=== PATIENT | female | born 1970 | race Caucasian/White ===

== ENCOUNTER 2018-09-26 09:52 | Outpatient (CLI) ==
--- NOTE | 2018-09-26 15:17 | MRI ---
EXAM: MRI cervical spine without IV contrast. DATE: 26 September 2018. HISTORY: Neck pain. TECHNIQUE: Sagittal and axial T1W and T2W sequences of the cervical spine along with sagittal IR and coronal T2W sequences were obtained using 1.2 Reema magnet. No IV contrast. COMPARISON: C-spine MRI 02/15/2017. FINDINGS: There is no cervical scoliosis. A 1 mm anterior subluxation of C2 relative to C3 is noted . No other subluxation, acute fracture, osseous malignancy, or jumped facet is evident. Cervical ve rtebra are normal in height. Minor anterior osteophytes are observed at C3-4 and C4-5. Mild/moderat e disc space narrowing is present at C4-5 and C5-6. Posterior disc/osteophyte complexes cause anteri or cord flattening at several levels. No syrinx, cord edema, myelomalacia, or neoplasm is evident. Visible brainstem and cerebellum are unremarkable. No thyroid, submandibular, or parotid gland neopl asm is evident. Trachea, larynx, and epiglottis are normal. No thyroid, submandibular, or parotid g land neoplasm is apparent. No suspicious neck mass, cervical lymphadenopathy, apical lung mass, pneu monia, or pleural effusion is demonstrated. Segmental analysis: C2-3: Normal. C3-4: Small posterior disc/osteophyte complex (1.8 mm AP) does not contact the cord. Canal is 10.7 mm AP. Mild right and minor left foraminal stenoses are due to uncinate hypertrophy. C4-5: Broad posterior disc/osteophyte complex (1.8 mm AP) approaches the anterior margin the cord. Canal is 7.8 mm AP. Minor bilateral foraminal narrowing is due to uncinate hypertrophy. C5-6: Broad posterior disc/osteophyte complex (3.5 mm AP) flattens the cord anteriorly. Canal is 7. 4 mm AP. Each foramen is patent. C6-7: Broad posterior disc/osteophyte complex (2.2 mm AP) approaches the cord anteriorly. Canal is 9.8 mm AP. Each foramen is patent. C7-T1: Normal. T1-2: Normal. IMPRESSIONS: 1. C-spine minimal spondylosis, uncinate hypertrophy, and multilevel DDD. 2. Multilevel central stenoses (C4-5: Moderate. C5-6: Moderate. C6-7: Mild). 3. Mild anterior cord flattening. No syrinx or myelomalacia. 4. C3-4 and C4-5 foraminal stenoses (minor/mild). 5. .
== END 2018-09-26 09:53 | disposition home or self-care (01) ==
LOC: RAD 09:52
PROVIDERS: ATTEND Nurse Practitioner
DX: M54.2 Cervicalgia (principal)

== ENCOUNTER 2018-10-12 16:36 | Emergency (ER) ==
[2018-10-12 16:44] VITALS: BP 117/77; TEMP 97.3; BMI 22.1
[2018-10-12] MEDS ORDERED: DHE 45 SUBCUT STA (16:59)
[2018-10-12] MEDS ORDERED: ZOFRAN ODT PO STA (16:59)
--- NOTE | 2018-10-12 17:00 | ED.PDOC ---
General ED Provider: Dr. FELICITY JETER Chief Complaint: Headache Stated Complaint: Patient is a 48 year old female who has a history cervical arthitis and migranes. Has had severe headache since yesterday with photophobia. States she gets them alot. she is not on any medications routinely. She is being approved for botox inj Time Seen by Physician: 16:50 Mode of Arrival: Walk-In Information Source: Patient Primary Care Provider: JONES GALVAN Nursing and Triage Documentation Reviewed and Agree: Yes Does patient meet sepsis criteria?: No System Inflammatory Response Syndrome: Not Applicable Sepsis Protocol: For patient's 13 years and over: Temp is 96.8 and below OR 101 and greater Pulse >90 BPM Resp >20/minute Acutely Altered Mental Status Are patient's symptoms suggestive of a new infection, such as: -Pneumonia -Skin, Soft Tissue -Endocarditis -UTI -Bone, Joint Infection -Implantable Device -Acute Abdominal Infection -Wound Infection -Meningitis -Blood Stream Catheter Infection -Unknown Neurological Complaint Exam - Headache Complaint/Exam Onset: Gradual Duration: 2 days Symptoms Are: Still present Timing: Constant Worst Headache Ever: No Initial Severity: Moderate Current Severity: Severe Location: Diffuse Character: Reports: Migraine Aggravating: Reports: Bright lights Associated Signs and Symptoms: Reports: Nausea, Neck pain (chronic arthritic ). Denies: Vomiting, Sinus pressure, Fever, Neck stiffness Related History: Reports: Similar episode Related Surgical History: Reports: None SAH Risk Factors: Reports: None Meningitis Risk Factors: Reports: None Sinus Tenderness: Present: None TMJ Tenderness: Present: None Glascow Coma Scale (see protocol): 15 Meningeal Signs Positive: No Pain on Passive Flexion-Positive Kernig's: No ROM Limited In: No Limitiations Focal Weakness: Present: None Gait: Normal Nystagmus Present: No Gag Reflex Present: Yes Differential Diagnoses: Migraine Review of Systems - Review Of Systems Constitutional: Reports: No symptoms Eyes: Reports: No symptoms Ears, Nose, Mouth, Throat: Reports: No symptoms Respiratory: Reports: No symptoms Cardiac: Reports: No symptoms GI: Reports: Nausea : Reports: No symptoms Musculoskeletal: Reports: No symptoms Skin: Reports: No symptoms Neurological: Reports: Anxiety, Headache Endocrine: Reports: No symptoms Hematologic/Lymphatic: Reports: No symptoms All Other Systems: Reviewed and Negative Past Medical History - Past Medical History Previously Healthy: Yes Endocrine: Reports: None Cardiovascular: Reports: None Respiratory: Reports: None Hematological: Reports: None Gastrointestinal: Reports: None Genitourinary: Reports: None Neuro/Psych: Reports: Migraine Musculoskeletal: Reports: Arthritis, Joint Pain Cancer: Reports: None Last Menstrual Period: now - Surgical History General Surgical History: Reports: Other (neck injection ) - Family History Family History: Reports: Unknown - Social History Smoking Status: Never smoker Hx Substance Use: No Alcohol Screening: None Physical Exam - Physical Exam Appearance: Ill-appearing, Thin Pain Distress: Severe Eyes: NATHAN, EOMI, Conjunctiva clear Neck: Supple Respiratory: Airway patent, Breath sounds clear, Breath sounds equal, Respirations nonlabored Cardiovascular: RRR, Pulses normal, No rub, No murmur GI/: Soft Musculoskeletal: Normal strength Skin: Warm, Dry Neurological: Alert, Oriented Psychiatric: Anxious Re-Evaluation - Re-Evaluation Time of Re-Evaluation: 19:00 Status: Improved Vital Signs Stable: Yes Pain Level: still has pain - Re-Evaluation Time of Re-Evaluation: 19:24 Status: Improved Vital Signs Stable: Yes Pain Level: better Appearance: NAD Skin: Warm and Dry Neuro: Alert and Oriented X3 Critical Care Note - Critical Care Note Total Time (mins): 0 Course - Course Orders, Labs, Meds: Orders Category Date Time Status Butorphanol Tartrate [Stadol] MEDS 10/12/18 18:34 Discontinued 2 mg IM ONCE STA Dihydroergotamine Mesylate [Dhe 45] MEDS 10/12/18 16:59 Discontinued 1 mg SUBCUT ONCE STA Ketorolac Tromethamine [Toradol] MEDS 10/12/18 17:42 Discontinued 60 mg IM ONCE STA Ondansetron [Zofran Odt] MEDS 10/12/18 16:59 Discontinued 4 mg PO ONCE STA Medications Discontinued Medications Generic Name Dose Route Start Last Admin Trade Name Freq PRN Reason Stop Dose Admin Butorphanol Tartrate 2 mg 10/12/18 18:34 10/12/18 18:46 Stadol IM 10/12/18 18:35 2 mg ONCE STA Administration Dihydroergotamine Mesylate 1 mg 10/12/18 16:59 10/12/18 17:21 Dhe 45 SUBCUT 10/12/18 17:00 1 mg ONCE STA Administration Ketorolac Tromethamine 60 mg 10/12/18 17:42 10/12/18 17:53 Toradol IM 10/12/18 17:43 60 mg ONCE STA Administration Ondansetron HCl 4 mg 10/12/18 16:59 10/12/18 17:22 Zofran Odt PO 10/12/18 17:00 4 mg ONCE STA Administration Vital Signs: Temp Pulse Resp BP Pulse Ox 10/12/18 16:37 97.3 F L 72 20 117/77 98 Departure - Departure Time of Disposition: 19:26 Disposition: HOME SELF-CARE Discharge Problem: Headache Instructions: Migraine Headache (ED) Condition: Stable Pt referred to PMD for follow-up: Yes IPMP verified?: No Additional Instructions: Take nausea medications as needed take Fioricet for headaches. Followup with your PCP in 3 days Prescriptions: Butalb/Acetaminophen/Caffeine [Fioricet] 1 each PO TID PRN #20 tablet PRN Reason: Migraine headache Ondansetron [Zofran Odt] 4 mg PO Q8H #12 tab.rapdis Allergies/Adverse Reactions: Allergies No Known Allergies Allergy (Verified 10/12/18 16:44) Home Medications: Ambulatory Orders Levothyroxine Sodium [Synthroid] 75 mcg PO DAILY 12/11/16 Butalb/Acetaminophen/Caffeine [Fioricet] 1 each PO TID PRN #20 tablet 10/12/18 Ondansetron [Zofran Odt] 4 mg PO Q8H #12 tab.rapdis 10/12/18 Disposition Discussed With: Patient, Family
[2018-10-12] MEDS ORDERED: TORADOL IM STA (17:42)
[2018-10-12] MEDS ORDERED: STADOL IM STA (18:34)
== END 2018-10-12 19:37 | disposition home or self-care (01) ==
LOC: ED 16:36
DX: R51 Headache (principal); H53.149 Visual discomfort, unspecified; R11.0 Nausea; M54.2 Cervicalgia; F41.8 Other specified anxiety disorders
CPT/HCPCS: 96372; 99282

== ENCOUNTER 2018-10-29 23:01 | Outpatient (CLI) | END 2018-10-29 23:28 | disposition short-term general hospital (02) | LOC: AMBL 23:01 | PROVIDERS: ATTEND Family Medicine | DX: R55 Syncope and collapse (principal); R19.7 Diarrhea, unspecified; R11.10 Vomiting, unspecified; R53.1 Weakness; R53.83 Other fatigue; R10.9 Unspecified abdominal pain; S09.90XA Unspecified injury of head, initial encounter; W19.XXXA Unspecified fall, initial encounter ==